=== PATIENT | male | born 1995 | race Two or more races ===

== ENCOUNTER 2016-10-12 12:14 | Emergency (ER) | payer SELFPAY ==
[~2016-10-12] VITALS: Ht 185.4 cm; Wt 57.9 kg
[2016-10-12] MEDS ORDERED: PREDNISONE50 MG PO (14:56)
[2016-10-12 15:05] VITALS: BP 149/81
== END 2016-10-12 15:15 | disposition home or self-care (01) ==
LOC: EME 12:14
DX: T78.1XXA Other adverse food reactions, not elsewhere classified, initial encounter (principal); L50.0 Allergic urticaria; Z91.010 Allergy to peanuts
CPT/HCPCS: 99281; 99284; J2930; S0028